=== PATIENT | male | born 1955 | race Caucasian/White ===

== ENCOUNTER 2016-09-12 15:57 | Emergency (ER) | payer BC ==
[2016-09-12 16:19] VITALS: BP 115/60
--- NOTE | 2016-09-12 16:44 | RAD ---
INDICATION: Left fifth finger injury. TECHNIQUE: 3 views of the left fifth finger were obtained. FINDINGS: The bones are normal alignment. No fracture is seen. Joint spaces appear maintained. IMPRESSION: NO EVIDENCE FOR FRACTURE.
--- NOTE | 2016-09-12 19:08 | UC ---
Ochoa Reno Aidan, scribed for Roma Singh MD on 09/12/16 at 1637 . Hand/Wrist HPI - HPI Summary HPI Summary: 61 y/o male presents to the Urgent Care with a complaint of acute, constant, mild (2/10) pain at the left 5th finger that resulted from him slamming his finger in the car door on 09/06. Since onset, his finger has become more sensitive to light touch. His pain is aggravated by pressure on the finger and he feels the pain most severely when he washes and dries his hands. Associated symptoms include a small bruise to the left 5th finger. Pts dominant hand is right. - History Of Current Complaint Chief Complaint: UCUpperExtremity Stated Complaint: FINGER INJURY Time Seen by Provider: 09/12/16 16:19 Hx Obtained From: Patient ?: No Mechanism Of Injury: slammed finger in car door on 09/06 Onset/Duration: Sudden Onset, Lasting Days, Still Present Severity Initially: Moderate Severity Currently: Mild Pain Intensity: 2 Pain Scale Used: 0-10 Numeric Character Of Pain: Aching Aggravating Factor(s): Other - applying pressure to the left 5th finger Alleviating: Other - unknown, Pt iced his hand but did not report relief Associated Signs And Symptoms: Positive: Bruising - Risk Factors Compartment Syndrome Risk Factors: Pain - Allergies/Home Medications Allergies/Adverse Reactions: Allergies Allergy/AdvReac Type Severity Reaction Status Date / Time No Known Allergies Allergy Verified 07/28/13 14:47 PMH/Surg Hx/FS Hx/Imm Hx Other History Of: Negative For: Anticoagulant Therapy - Surgical History Surgical History: Yes Surgery Procedure, Year, and Place: 2009 - Family History Known Family History: Positive: Cardiac Disease - mother- [place] in mid 50's, 3 CABG. brother- quadruple bypass early 60's - Social History Occupation: Employed Full-time Lives: With Family Alcohol Use: Occasionally Substance Use Type: None Smoking Status (MU): Never Smoked Tobacco Review of Systems Constitutional: Negative Skin: Bruising - left 5th finger Eyes: Negative ENT: Negative Respiratory: Negative Cardiovascular: Negative Gastrointestinal: Negative Genitourinary: Negative Motor: Negative Neurovascular: Negative Musculoskeletal: Arthralgia - pain at left 5th finger Neurological: Negative Psychological: Negative All Other Systems Reviewed And Are Negative: Yes Physical Exam Triage Information Reviewed: Yes Appearance: Well-Nourished Vital Signs: Initial Vital Signs Temp 98.3 F 09/12/16 16:01 Pulse 67 09/12/16 16:01 Resp 18 09/12/16 16:01 BP 115/60 09/12/16 16:01 Pulse Ox 100 09/12/16 16:01 Vital Signs Reviewed: Yes Eye Exam: Normal ENT Exam: Normal ENT: Positive: Normal ENT inspection Neck exam: Normal Respiratory Exam: Normal, Other - no dysnpea, no tachypnea, regular respiratory rate Cardiovascular Exam: Normal, Other - good general skin color Cardiovascular: Positive: RRR, Brisk Capillary Refill Abdominal Exam: Normal Abdomen Description: Positive: Nontender, No Organomegaly, Soft Bowel Sounds: Positive: Present Musculoskeletal Exam: Normal Musculoskeletal: Positive: Strength Intact, Other: - tender to pressure, proximal 5th phalanx. Able to bend and move in all directions. Distal sensation LT present. Distal echymosis is forming just below the lunula. Neurological Exam: Normal Neurological: Positive: Alert Psychological Exam: Normal Psychological: Positive: Age Appropriate Behavior Skin Exam: Normal, Other - no visible or reported rash Diagnostics - Radiology FINGER X-RAY Xray Interpretation: No Acute Changes - IMPRESSION: No evidence for fracture Radiology Interpretation Completed By: Radiologist Hand/Wrist Course/Dx - Course Course Of Treatment: Xray neg fracture, reviewed with pt. Splint next few days recommended if possible. F/u pcp, per routine, sooner for worse or new problems. - Differential Dx/Diagnosis Provider Diagnoses: L index finger crush injury Discharge - Discharge Plan Condition: Stable Disposition: HOME Patient Education Materials: Crush Injury (ED) Referrals: Rakesh Davis MD [Primary Care Provider] - Additional Instructions: Splint as needed for comfort, recommend using at least during the day over this weekend. Elevate as possible. Follow up primary care physician per routine, sooner for worse or new problems. The documentation as recorded by the Ochoa raygoza Aidan accurately reflects the service I personally performed and the decisions made by me, Roma Singh MD.
== END 2016-09-12 17:28 | disposition home or self-care (01) ==
LOC: UCEAST 15:57
DX: S67.191A Crushing injury of left index finger, initial encounter (principal); W23.1XXA Caught, crushed, jammed, or pinched between stationary objects, initial encounter
CPT/HCPCS: 73140; 99212; G0463

== ENCOUNTER 2018-03-20 02:57 | Inpatient (IN) | payer BC ==
[2018-03-20] MEDS ORDERED: NS 0.9% 1000 ML* 1,000 ML IV ONE (04:16)
--- NOTE | 2018-03-20 04:24 | ED ---
Abdominal Pain/Male - HPI Summary HPI Summary: 62 year old M presenting [facility] accompanied by complains of abdominal pain since 6 days ago, worse since one hour ago. The patient rates the pain 5/ 10 in severity. Symptoms aggravated by position changes. Symptoms alleviated by nothing. Patient reports decreased appetite. Patient denies nausea, vomiting, diarrhea, dysuria, abnormal bowel movements. Patient had appendectomy in 2010. Patient seen by PCP two days ago and had bloodwork done which showed elevated WBC. He was referred to ED to get CT scan done but patient felt better so he did not go. He was advised to go to ED if symptoms worsened. This morning, patient was woken up by localized abdominal pain in RUQ and decided to go to ED. - History of Current Complaint Chief Complaint: EDAbdPain Stated Complaint: ABD PAIN Time Seen by Provider: 03/20/18 04:08 Hx Obtained From: Patient Onset/Duration: Lasting Days - 6, Still Present, Worse Since - one hour ago Severity Currently: Moderate Pain Intensity: 5 Pain Scale Used: 0-10 Numeric Location: Discrete At: RUQ Aggravating Factor(s): Other: - position changes Alleviating Factor(s): Nothing Associated Signs And Symptoms: Positive: Negative - nausea, vomiting, diarrhea, dysuria, abnormal bowel movements, Other - decreased appetite - Allergies/Home Medications Allergies/Adverse Reactions: Allergies Allergy/AdvReac Type Severity Reaction Status Date / Time No Known Allergies Allergy Verified 03/20/18 03:06 PMH/Surg Hx/FS Hx/Imm Hx Previously Healthy: No Endocrine/Hematology History: Denies: Hx Anticoagulant Therapy, Hx Diabetes, Hx Thyroid Disease Cardiovascular History: Denies: Hx Hypertension Respiratory History: Denies: Hx Asthma, Hx Chronic Obstructive Pulmonary Disease (COPD) GI History: Denies: Hx Ulcer - Surgical History Surgery Procedure, Year, and Place: [id number] Infectious Disease History: No Infectious Disease History: Denies: Hx Hepatitis, Hx Human Immunodeficiency Virus (HIV), Traveled Outside the [place] in Last 30 Days - Family History Known Family History: Positive: Cardiac Disease - mother- [place] in mid 50's, 3 CABG. brother- quadruple bypass early 60's - Social History Alcohol Use: Occasionally Hx Substance Use: No Substance Use Type: Reports: None Hx Tobacco Use: No Smoking Status (MU): Never Smoked Tobacco Review of Systems Positive: Abdominal Pain, Other - Decreased appetite; NEGATIVE: abnormal bowel movement. Negative: Vomiting, Diarrhea, Nausea Negative: dysuria All Other Systems Reviewed And Are Negative: Yes Physical Exam - Summary Physical Exam Summary: Appearance: Well-appearing, Well-nourished, lying in bed comfortably Skin: Warm, dry, no obvious rash Eyes: sclera anicteric, no conjunctival pallor ENT: mucous membranes moist, pharynx appears normal Neck: Supple, nontender Respiratory: Clear to auscultation, no signs of respiratory distress Cardiovascular: Normal S1, S2. No murmurs. Normal distal pulses in tibial and radial bilaterally. Abdomen: RUQ tenderness Musculoskeletal: Normal, Strength/ROM Intact Neurological: A&Ox3, awake and alert, mentation is normal, speech is fluent and appropriate Psychiatric: affect is normal, does not appear anxious or depressed Triage Information Reviewed: Yes Vital Signs On Initial Exam: Initial Vitals Temp Pulse Resp BP Pulse Ox 98.6 F 89 16 124/62 94 03/20/18 03:03 03/20/18 03:03 03/20/18 03:03 03/20/18 03:03 03/20/18 03:03 Vital Signs Reviewed: Yes Diagnostics - Vital Signs Vital Signs Temp Pulse Resp BP Pulse Ox 03/20/18 03:03 98.6 F 89 16 124/62 94 - Laboratory Result Diagrams: 03/20/18 04:57 03/20/18 04:57 Lab Statement: Any lab studies that have been ordered have been reviewed, and results considered in the medical decision making process. Abdominal Pain Fem Course/Dx - Course Course Of Treatment: 62 year old M presenting [place] [facility] complains of abdominal pain since 6 days ago, worse since one hour ago. Patient seen by PCP two days ago and had bloodwork done which showed elevated WBC after which patient was referred to ED. Bloodwork and UA unremarkable. Patient will be signed out to Dr. Lozano, awaiting CT Abd/Pel, pending disposition. - Diagnoses Provider Diagnoses: Abdominal pain Discharge - Sign-Out/Discharge Documenting (check all that apply): Sign-Out Patient Signing out patient TO: Bairon Lozano - awaiting CT Abd/Pel, pending disposition - Discharge Plan Referrals: Rakesh Davis MD [Primary Care Provider] - - Attestation Statements Document Initiated by Scribe: Yes Documenting Scribe: Eusebia Colon Provider For Whom Scribe is Documenting (Include Credential): Dre Cornelius MD Scribe Attestation: I, Eusebia Colon, scribed for Dre Cornelius MD on 03/20/18 at 0638. Status of Scribe Document: Ready
[2018-03-20 05:01] LABS: Urine Appearance Cloudy; Urine Blood 3+ (Negative); Urine Color Yellow; Urine Ketones Negative (Negative); Urine Protein 1+(30 mg/dL) (Negative); Urine Red Blood Cell 3+(>10/hpf) (Absent); Urine Urobilinogen Negative (Negative); Urine White Blood Cell Absent (Absent)
[2018-03-20 05:03] LABS: ABS Basophils 0 10^3/ul (0-0.2); ABS Eosinophils 0.2 10^3/ul (0-0.6); ABS Lymphocytes 0.9 10^3/ul (1.0-4.8); ABS Monocytes 1.3 10^3/ul (0-0.8); ABS Neutrophils 8.9 10^3/ul (1.5-7.7); ABS Nucleated RBC 0 10^3/ul; Eosinophil % 1.6 %; Hematocrit 34 % (42-52); Hemoglobin 11.7 g/dl (14.0-18.0); Lymphocyte % 8.2 %; Mean Corpuscular HGB Conc 34 g/dl (31-36); Mean Corpuscular Hemoglobin 30 pg (27-31); Mean Corpuscular Volume 90 fL (80-94); Mean Platelet Volume 7.5 fL (7.4-10.4); Nucleated Red Blood Cells % 0; Platelet Count 219 10^3/ul (150-450); Red Blood Count 3.83 10^6/ul (4.00-5.40); Red Cell Distribution Width 13 % (10.5-15); White Blood Count 11.3 10^3/ul (3.5-10.8)
[2018-03-20 05:21] LABS: EGFR Non-African American 94.9 (>60)
[2018-03-20] MEDS ORDERED: Iohexol 300* (CONTRAST) 10 ML SDV IV ONE (06:00)
[2018-03-20] MEDS ORDERED: Piperacillin/Tazobac ADVAN(*) 3.375 GM in NS 0.9% 100 ML* 100 ML IVPB ONE (07:12)
--- NOTE | 2018-03-20 07:31 | ED ---
Progress - Progress Note Progress Note: Patient states that he continues to feel pain in the RUQ. Abnormal CT. Bedside US was performed for any abnormal gallbladder symptoms. Gallbladder wall was thick with sludge. Formal US will be ordered. - EKG/XRAY/CT Xray Comments: CT positive for gallbladder wall thickening, distention. CT: formal gallbladder ultrasound positive for all thickening, cholelithiasis Course/Dx - Course Course Of Treatment: 62 year old M presenting to [facility] complains of abdominal pain since 6 days ago, worse since one hour ago. Patient seen by PCP two days ago and had bloodwork done which showed elevated WBC after which patient was referred to ED. Bloodwork and UA unremarkable. - Diagnoses Provider Diagnoses: Abdominal pain, Acute acalculous cholecystitis - Provider Notifications Discussed Care Of Patient With: Reddy Toth - will evaluate and admit Discharge - Sign-Out/Discharge Documenting (check all that apply): Patient Departure - Discharge Plan Condition: Fair Disposition: ADMITTED TO [facility] Referrals: Rakesh Davis MD [Primary Care Provider] - - Billing Disposition and Condition Condition: FAIR Disposition: Admitted to [facility] - Attestation Statements Document Initiated by Amada: Yes Documenting Scribe: Estefania De Jesus Provider For Whom Amada is Documenting (Include Credential): Bairon Lozano MD Scribe Attestation: Estefania Reno scribed for Bairon Lozano MD on 03/20/18 at 0827. Scribe Documentation Reviewed: Yes Provider Attestation: The documentation as recorded by the Estefania raygoza accurately reflects the service I personally performed and the decisions made by , Bairon Lozano MD Status of Scribe Document: Viewed
[2018-03-20] MEDS ORDERED: HYDROmorphone INJ* 0.5 MG/0.5 ML SYRINGE IV PRN (08:46)
[2018-03-20] MEDS: Morphine VIAL* 4 MG/ML VIAL (1 ml vial) IV ONE ×2 (10:07→10:51)
--- NOTE | 2018-03-20 10:56 | HP ---
CC: [facility] HISTORY AND PHYSICAL: DATE OF ADMISSION: 03/20/18 CHIEF COMPLAINT: Right upper quadrant abdominal pain. HISTORY OF PRESENT ILLNESS: This is a 62-year-old gentleman with no significant past medical history, who began having abdominal pain in the right upper quadrant in the afternoon on 03/14/18. He was on a trip in [place] at that time, and shortly after, he noted a sense of chills but no fever. Denies nausea, vomiting, diarrhea, or constipation. He reports no previous episodes of pain in the past, no fatty food intolerance. He noted that his pain became more severe at night on Thursday and was mild during the day. He continued to have chills and felt feverish. He returned home from his trip and was seen and evaluated at [facility] a few days ago and was noted to have very mildly elevated white blood cell count and was suggested that he go for a CT scan assessment which he initially declined; however, his pain became increasingly severe early this morning around 1 a.m. and he presented to the emergency room at [facility]. He has been periodically taking Tylenol and [place] with relief of his pain. He denies any changes in urination. No tea colored urine or jaundice. PAST MEDICAL HISTORY: 1. Benign hematuria. 2. Benign prostatic hypertrophy. 3. He has previously undergone near syncope workup with cardiac evaluation being negative since 2016. PAST SURGICAL HISTORY: Laparoscopic appendectomy in 2009 at [facility]. MEDICATIONS: 1. Baby aspirin daily. 2. Tylenol p.r.n. 3. [place] p.r.n. ALLERGIES: None known. FAMILY HISTORY: Coronary artery disease, gallbladder disease, brother had cholecystectomy. SOCIAL HISTORY: He is a nonsmoker, occasionally drinks alcohol. Denies drug use. He is and he is employed. REVIEW OF SYSTEMS: A 14-point review of systems was completed. Significant for the above mentioned positives and negatives; otherwise, review of systems were negative. PHYSICAL EXAMINATION VITAL SIGNS: He is 5 feet 7 inches tall, 138 pounds with a BMI of 21.6. Temperature is 98.6, pulse of 75, respirations 16, O2 saturation 97%, blood pressure 96/50. HEENT: Normocephalic and atraumatic. His sclerae are anicteric. His mucous membranes are moist. There is no otorrhea, no rhinorrhea. His oropharynx is clear. His tongue is midline. Dentition is intact. NECK: His neck is supple with no palpable lymphadenopathy or masses. PULMONARY: His lungs are clear to auscultation bilaterally, no wheezes. CARDIAC: Heart is regular, S1 and S2 with no murmurs. ABDOMEN: Has no visible scars. It is softly distended with bowel sounds present. There is tenderness in the right upper quadrant with no palpable masses. He has a Friedman sign. EXTREMITIES: Warm without cyanosis, clubbing, or edema. He has 2+ dorsalis pedis and PT pulses bilaterally. DIAGNOSTIC STUDIES/LAB DATA: WBC is 11.3, hemoglobin 11.7, hematocrit 34, platelets 219. No shift. Chemistries; sodium 135, potassium 3.7, chloride 101 , bicarb 27, BUN 17, creatinine 0.8, glucose 140, total bili 0.5. AST, ALT, alk phos normal. Albumin 3.6, lipase 13. Urinalysis shows 3+ blood, and no bacteria or leukocyte esterase. Radiology: CT scan abdomen and pelvis with oral and IV contrast images reviewed. Findings were notable for distended gallbladder with thickened wall, surrounding edema. No calcified gallstones. Normal pancreas. Gallbladder ultrasound shows cholelithiasis, gallbladder wall thickening. No sonographic Friedman's reported. IMPRESSION: This is a 62-year-old gentleman generally healthy with calculus cholecystitis with 7 days of symptoms. PLAN/RECOMMENDATION: I have discussed the findings with the patient. I have explained the nature of the disease and its potential complications. I have recommended he be admitted for intravenous antibiotics, bowel rest, and he will be reassessed for possibility of laparoscopic cholecystectomy this admission versus ongoing antibiotic therapy and cholecystectomy as an outpatient. He understands and agrees to the plan. [id number]/[facility] #: [id number] [facility] HOSPITALAudrey
[2018-03-20] MEDS: Piperacillin/Tazobactam VIAL*) 3.375 GM in NS 0.9% 100 ML* 100 ML IVPB SCH ×2 (11:44→19:45)
[2018-03-20] MEDS: Ketorolac INJ* 30 MG/ML 1 ML VIAL IV PRN ×2 (11:47→19:48)
[2018-03-20] MEDS: Acetaminophen TAB* 325 MG PO PRN ×2 (12:42→19:44)
[2018-03-21] MEDS: Piperacillin/Tazobactam VIAL*) 3.375 GM in NS 0.9% 100 ML* 100 ML IVPB SCH ×3 (04:13→19:09)
[2018-03-21 05:43] LABS: ABS Basophils 0 10^3/ul (0-0.2); ABS Eosinophils 0.3 10^3/ul (0-0.6); ABS Monocytes 1.1 10^3/ul (0-0.8); ABS Neutrophils 6.8 10^3/ul (1.5-7.7); ABS Nucleated RBC 0 10^3/ul; Eosinophil % 3.7 %; Hematocrit 33 % (42-52); Hemoglobin 11.2 g/dl (14.0-18.0); Lymphocyte % 11.1 %; Mean Corpuscular HGB Conc 35 g/dl (31-36); Mean Corpuscular Hemoglobin 31 pg (27-31); Mean Corpuscular Volume 90 fL (80-94); Mean Platelet Volume 7.5 fL (7.4-10.4); Nucleated Red Blood Cells % 0; Platelet Count 223 10^3/ul (150-450); Red Blood Count 3.63 10^6/ul (4.00-5.40); Red Cell Distribution Width 13 % (10.5-15); White Blood Count 9.2 10^3/ul (3.5-10.8)
[2018-03-21 05:59] LABS: EGFR Non-African American 88.6 (>60)
--- NOTE | 2018-03-21 09:16 | PN ---
Progress Note - Progress Note Date of Service: 03/21/18 SOAP: Subjective: He notes pain is better. Objective: Vital Signs Temp 99.0 F 03/21/18 04:14 Pulse 76 03/21/18 04:14 Resp 16 03/21/18 04:14 BP 114/51 03/21/18 04:14 Pulse Ox 98 03/21/18 04:14 Abd: tender RUQ Intake & Output 03/20/18 03/21/18 03/21/18 18:59 06:59 18:59 Intake Total 100 1493 Output Total 975 375 Balance -875 1118 Weight 138 lb 138 lb Intake: IV Fluids 973 LR 973 IVPB 100 ABX - ZOSYN 100 Oral 100 420 Output: Urine 975 375 Other: # Bowel Movements 0 Laboratory Results - last 24 hr 03/20/18 03/21/18 03/21/18 13:59 05:16 05:16 WBC 9.2 RBC 3.63 L Hgb 11.2 L Hct 33 L MCV 90 MCH 31 MCHC 35 RDW 13 Plt Count 223 MPV 7.5 Neut % (Auto) 73.4 Lymph % (Auto) 11.1 [place] % (Auto) 11.5 Eos % (Auto) 3.7 Baso % (Auto) 0.3 Absolute Neuts (auto) 6.8 Absolute Lymphs (auto) 1.0 Absolute Monos (auto) 1.1 H Absolute Eos (auto) 0.3 Absolute Basos (auto) 0 Absolute Nucleated RBC 0 Nucleated RBC % 0 Sodium 137 Potassium 4.1 Chloride 104 Carbon Dioxide 27 Anion Gap 6 BUN 13 Creatinine 0.87 Est GFR ( Amer) 107.2 Est GFR (Non-Af Amer) 88.6 BUN/Creatinine Ratio 14.9 Glucose 120 H Lactic Acid 0.5 Calcium 8.7 Total Bilirubin 0.70 AST 24 ALT 31 Alkaline Phosphatase 63 Total Protein 5.9 L Albumin 3.1 L Globulin 2.8 Albumin/Globulin Ratio 1.1 Assessment: Acute cholecystitis. Plan: Laparoscopic cholecystectomy later today. I/R/B/A/option of no tx d/w patient. Risks explained including not limited to bleeding, infection, pain, scarring, blood clots, pneumonia, N/V, open surgery, and visceral injury. All questions answered. He states understanding and agrees to proceed.
[2018-03-21] MEDS ORDERED: Succinylcholine* 20 MG/ML 10 ML VIAL ONE (11:31)
[2018-03-21] MEDS ORDERED: Lidocaine 2% PF * 5 ML VIAL ONE (11:31)
[2018-03-21] MEDS ORDERED: Propofol* 10 MG/ML 20 ML BTL ONE (11:31)
[2018-03-21] MEDS ORDERED: fentaNYL* 50 MCG/ML 2 ML VIAL (100 MCG VIAL) ONE ×2 (11:31→13:44)
[2018-03-21] MEDS ORDERED: DiMENhydriNATE IV* 50 MG/ML VIAL IV PUSH PRN (11:45)
[2018-03-21] MEDS ORDERED: fentaNYL* 50 MCG/ML 2 ML VIAL (100 MCG VIAL) IV PRN (11:45)
[2018-03-21] MEDS ORDERED: Naloxone* 0.4 MG/ML 1 ML VIAL IV PRN (11:45)
[2018-03-21] MEDS ORDERED: oxyCODONE/Acetamin 5/325 MG* TAB PO PRN (11:45)
[2018-03-21] MEDS ORDERED: HYDROcodone/ACETAMIN 5-325 MG* 1 TAB PO PRN (11:45)
[2018-03-21] MEDS ORDERED: EPHEDrine (Pressors)* 50 MG/ML VIAL ONE (12:20)
[2018-03-21] MEDS ORDERED: Dexamethasone IV* 4 MG/ML 1 ML (4 MG) ONE (12:26)
[2018-03-21] MEDS ORDERED: Rocuronium* 10 MG/ML VIAL ONE (12:40)
[2018-03-21] MEDS ORDERED: Ketorolac INJ* 30 MG/ML 1 ML VIAL ONE (12:43)
[2018-03-21] MEDS ORDERED: Ondansetron INJ* 2 MG/ML VIAL ONE (13:41)
[2018-03-21] MEDS: Ketorolac INJ* 30 MG/ML 1 ML VIAL IV PRN (17:19)
--- NOTE | 2018-03-21 22:37 | OP ---
CC: Rakesh Davis MD OPERATIVE REPORT: DATE OF OPERATION: 03/21/18 DATE OF : 53 SURGEON: Reddy Toth MD [employer] MECHANIC: Dr. Galdamez. ANESTHESIOLOGIST: Dr. Almeida. ANESTHESIA: General endotracheal. PRE-OP DIAGNOSIS: Acute cholecystitis. POST-OP DIAGNOSIS: Acute cholecystitis. OPERATIVE PROCEDURE: Laparoscopic subtotal fenestrated cholecystectomy. ESTIMATED BLOOD LOSS: Less than 50 mL. IV FLUIDS: Crystalloid. SPECIMENS: Gallbladder and contents. DRAINS: 7-mm Hudson-Angel. COMPLICATIONS: None. COUNTS: Instrument, needle, and sponge counts correct. DESCRIPTION OF PROCEDURE: The patient was brought to the operating room and placed on the table supine. Sequential compression devices were placed in both lower extremities. General anesthesia was administered. He was positioned and padded appropriately. He had received appropriate intravenous antibiotics. His abdomen was prepped and draped in usual sterile fashion. Time-out was performed. Local anesthetic was infiltrated into the skin and soft tissue prior to making each incision. Entry into the abdomen was through an open technique through a transumbilical incision vertically. After accessing the peritoneal cavity, a 12 -mm trocar was placed and carbon dioxide was insufflated to a pressure of 15 mmHg. Under direct visualization, 5 mm trocars were placed in the subxiphoid position and 2 in the right upper quadrant. The gallbladder was noted to be covered with omentum. This was dissected free bluntly. The gallbladder was distended and acutely inflamed with no evidence of gangrene. The gallbladder was grasped at the fundus and retracted cephalad. Placement of second grasper was attempted at the infundibulum; however, in doing so, a cholecystotomy was made at the site and there was pus forthcoming. Endoscopic suction was used to drain the gallbladder and subsequently no additional pus was forthcoming. Dissection proceeded around the area of the infundibulum and noting the extensive adhesions and inflammation in the area, it was decided to perform a subtotal fenestrated cholecystectomy. The peritoneum was scored on the medial aspect of the gallbladder extending this towards the fundus. As the dissection continued, the prior cholecystotomy site tore further and gallstones were forthcoming. Stones were retrieved through the 12 mm port site. Dissection continued over the fundus and down the lateral aspect of the gallbladder wall and then there was a plane entered, which was within the area of the submucosa and the gallbladder was able to be dissected free in this plane using blunt dissection heading towards the infundibulum. The cystic artery was encountered and it was clipped and divided. As the dissection proceeded further towards the cystic duct, the cholecystotomy was extended circumferentially leaving a portion of the infundibulum in situ. The gallbladder wall that had been dissected free was then retrieved along with stones using endoscopic retrieval bag through the umbilical port site. Inspection then was performed in order to determine the best way to control the cystic duct. Ultimately, it was decided to suture this close with 2- 0 silk and this was performed in the [id number] fashion. A 7 -mm drain was then placed into the abdominal cavity and withdrawn through the lateralmost 5 mm port. The drain was placed into the Dye's pouch and then sutured to the skin with 3-0 Prolene. Hemostasis was assured and a copious lavage of the peritoneum had been completed with 2 L of saline until cleared. The remaining ports were then removed under direct visualization and carbon dioxide was released. The umbilicus was closed with 0 Vicryl in figure-of- eight fashion to approximate the fascia. Skin incisions were closed with 4-0 Monocryl in subcuticular fashion. Steri-Strips were applied and dressings to the drain site. The patient tolerated the procedure well, was extubated and transferred to the recovery room in a stable condition. [id number]/[facility] #: [id number] [facility]ITY CAMPUSuAdrey
[2018-03-22] MEDS: Ketorolac INJ* 30 MG/ML 1 ML VIAL IV PRN (01:18)
[2018-03-22] MEDS: oxyCODONE/Acetamin 5/325 MG* TAB PO PRN ×3 (01:18→22:44)
[2018-03-22] MEDS: NS 0.9% 1000 ML* 1,000 ML IV SCH ×3 (01:22→21:04)
[2018-03-22] MEDS: Piperacillin/Tazobactam VIAL*) 3.375 GM in NS 0.9% 100 ML* 100 ML IVPB SCH ×3 (03:57→19:57)
--- NOTE | 2018-03-22 08:57 | PN ---
Progress Note - Progress Note Date of Service: 03/22/18 SOAP: Subjective:POD#1 S/P LAP CHOLECYSTECTOMY good pain control;no n/v;a little hungry [] Objective: Vital Signs Temp 98.1 F 03/22/18 08:20 Pulse 63 03/22/18 08:20 Resp 16 03/22/18 08:35 BP 117/54 03/22/18 08:20 Pulse Ox 96 03/22/18 08:20 Intake & Output 03/21/18 03/22/18 03/22/18 18:59 06:59 18:59 Intake Total 0 1446 Output Total 300 680 200 Balance -300 766 -200 Intake: IV Fluids 895 NS (0.9%) 895 IVPB 111 ABX - ZOSYN 111 Oral 0 440 Output: XIN #1 0 30 Urine 300 650 200 lungs:clear bilat;heart:RRR,no murmur:abd:+bs,soft,mild distention;XIN serosang, patent;incisions intact with steristrips,no erythema or drainage;ext:nontender calves,no edema [] Assessment:stable [] Plan:start low fat diet as tolerated ambulate inspiron recheck later for possible discharge keep XIN []
[2018-03-22] MEDS: Ibuprofen TAB* 600 MG PO PRN ×2 (14:12→20:06)
[2018-03-23] MEDS: Piperacillin/Tazobactam VIAL*) 3.375 GM in NS 0.9% 100 ML* 100 ML IVPB SCH (03:30)
[2018-03-23] MEDS: oxyCODONE/Acetamin 5/325 MG* TAB PO PRN (03:36)
[2018-03-23] MEDS: NS 0.9% 1000 ML* 1,000 ML IV SCH (06:16)
[2018-03-23] MEDS: Ibuprofen TAB* 600 MG PO PRN ×2 (06:40→11:52)
[2018-03-23] MEDS: Acetaminophen TAB* 325 MG PO PRN (09:23)
--- NOTE | 2018-03-23 09:25 | PN ---
Progress Note - Progress Note Date of Service: 03/23/18 Note: S: POD #2. Did well during the day yesterday; had a bit more pain last night, relieved by Motrin and Percocet. James diet; ambulating. Dr. Toth also in to see. O: Vital Signs - 8 hr 03/23/18 03/23/18 03/23/18 03:33 03:36 05:51 Temperature 98.0 F Pulse Rate 70 Respiratory 16 16 16 Rate Blood Pressure 102/58 (mmHg) O2 Sat by Pulse 94 Oximetry 03/23/18 03/23/18 07:17 07:48 Temperature 97.7 F Pulse Rate 72 Respiratory 16 16 Rate Blood Pressure 101/52 (mmHg) O2 Sat by Pulse 97 Oximetry Intake and Output Last 24 Hours 03/21/18 03/22/18 03/23/18 03/24/18 06:59 06:59 06:59 06:59 Intake Total 1593 1446 3294 Output Total 2528 449 1233 550 Balance 243 466 954 -550 Weight 138 lb Intake: IV Fluids 660 531 4978 LR 973 NS (0.9%) 895 2883 IVPB 100 111 111 ABX - ZOSYN 100 111 111 Oral 520 440 300 Output: XIN #1 30 40 Urine 6932 004 7921 550 Other: Estimated Void Medium # Bowel Movements 0 Heart: reg Lungs: clear ant Abd: +BS; XIN: small amt serosang drainage. Soft; mild tenderness. A: s/p lap gus (subtotal) for acute cholecystitis; doing well P: home today; instructions reviewed
[2018-03-23 11:50] VITALS: BP 100/58
--- NOTE | 2018-03-23 13:51 | DS ---
CC: Dr. Rakesh Davis * DISCHARGE SUMMARY: DATE OF ADMISSION: 03/20/18 DATE OF DISCHARGE: 03/23/18 ATTENDING SURGEON: Dr. Reddy Toth * (EVA Little dictating). HOSPITAL COURSE: Please refer to admission history and physical and operative note for details. The patient was taken to the operating room on 03/21/18 , at which time he underwent laparoscopic subtotal cholecystectomy for acute cholecystitis with Dr. Toth. He was covered with IV Zosyn perioperatively. PHYSICAL EXAM: As of the morning of discharge, physical exam, temperature 97.7 , blood pressure 101/52, pulse 72, respirations 16, room air saturation 97%. General: Appears well and in no acute distress. Heart: Regular rate and rhythm. Lungs: Clear to auscultation. Abdomen: Laparoscopic incision sites are clean and dry. XIN drain with small amount of light serosanguineous drainage , no bile. Soft with mild tenderness to palpation primarily at the incisions. IMPRESSION: Status post laparoscopic subtotal cholecystectomy for acute cholecystitis, doing well. PLAN: Home today with XIN drain, no further antibiotics indicated (I will confirm with Dr. Toth). He has an appointment this 03/26/18, for followup in the office and probable removal of drain. EVA LITTLE [id number]/[facility] #: [id number]
== END 2018-03-23 12:22 | disposition home or self-care (01) | DRG 263 ==
LOC: ED 02:57 → SSU 09:05
PROVIDERS: ADMIT Surgery; ATTEND Surgery
PROC: 0FT44ZZ Resection of Gallbladder, Percutaneous Endoscopic Approach (ICD-10-PCS; principal; 2018-03-21 12:15)
DX: K80.00 Calculus of gallbladder with acute cholecystitis without obstruction (principal); K82.8 Other specified diseases of gallbladder; N40.0 Benign prostatic hyperplasia without lower urinary tract symptoms; Z79.1 Long term (current) use of non-steroidal anti-inflammatories (NSAID); Z79.82 Long term (current) use of aspirin; Z79.899 Other long term (current) drug therapy; Z82.49 Family history of ischemic heart disease and other diseases of the circulatory system; Z83.79 Family history of other diseases of the digestive system
CPT/HCPCS: 36415; 74177; 76705; 80053; 81003; 81015; 83605; 83690; 85025; 87040; 88304; 99284; A9270-GY; J0330; J1100; J1170; J1885; J2270; J2405; J2543; J2704; J3010; Q9967